=== PATIENT | male | born 1990 | race Two or more races ===

== ENCOUNTER 2020-09-26 23:51 | Emergency (ER) | payer MEDICAID ==
[~2020-09-26] VITALS: Ht 167.6 cm; Wt 72.6 kg
[2020-09-27 03:36] VITALS: BP 155/93
[2020-09-27] MEDS ORDERED: ONDANSETRON HCL 4 MG/2 ML VIAL IV ONE (07:45)
[2020-09-27] MEDS ORDERED: MORPHINE SULFATE 4 MG/ML SYR/VIAL IV ONE (07:45)
== END 2020-09-27 08:35 | disposition home or self-care (01) ==
LOC: ER 23:51
DX: S93.401A Sprain of unspecified ligament of right ankle, initial encounter (principal); M16.11 Unilateral primary osteoarthritis, right hip; W18.39XA Other fall on same level, initial encounter; Y93.89 Activity, other specified; Y92.89 Other specified places as the place of occurrence of the external cause; Y99.8 Other external cause status
CPT/HCPCS: 73502; 73610; 96374; 96375; 99284; J2270; J2405